=== PATIENT | female | born 2000 | race African-American/Black ===

== ENCOUNTER 2021-06-15 20:07 | Emergency (ER) | payer OTHER ==
[2021-06-15] MEDS ORDERED: Ondansetron PF 4 MG/2 ML Vial ONE (21:27)
[2021-06-15 21:52] LABS: BHCG - Serum Negative (NEGATIVE); Pregs Control Background? CLEAR/WHITE (CLR/WHITE); Pregs Control Bar Appear? YES (CONTROL BAR)
[2021-06-15 21:53] LABS: #Eosinphils 0.1 10x3/uL (0.0-0.5); #Monocytes 0.3 10x3/uL (0.0-1.1); #Neutrophils 2.5 10x3/uL (1.5-8.4); %Basophils 0.8 % (0.0-2.0); %Eosinophils 2.6 % (0.0-6.0); %Lymphocytes 41.6 % (18.0-47.0); %Monocytes 5.7 % (0.0-10.0); %Neutrophils 48.9 % (40.0-75.0); Mean Corpuscular HGB CONC 32.7 g/dL (32.0-36.0); Mean Corpuscular Volume 82.5 fl (81.6-98.3); Mean Platelet Volume 13.3 fl (7.4-10.4); Platelet Count 142 10x3/uL (150-450); RBC Distribution Width 13.8 % (11.5-14.5); Red Blood Cell (RBC) Count 4.81 10x6/uL (3.90-5.03); White Blood Cell (WBC) Count 5.1 10x3/uL (3.5-10.5)
[2021-06-15 21:59] LABS: ALT (SGPT) 13 U/L (8-55); AST (SGOT) 14 U/L (5-34); Albumin 4.6 g/dL (3.5-5.0); Alkaline Phosphatase 64 U/L (40-100); Anion Gap 15 mmol/L (10-20); BUN (Urea Nitrogen) 18 mg/dL (7.0-18.7); Bilirubin, Total 0.3 mg/dL (0.2-1.2); Calc. Creatinine Clearance 0 mL/min (70-130); Calcium 9.4 mg/dL (7.8-10.44); Carbon Dioxide 21 mmol/L (22-29); Chloride 105 mmol/L (98-107); Globulin 4.4 g/dL (2.4-3.5); Glucose 80 mg/dL (70-105); Lipase 29 U/L (8-78); Potassium 3.8 mmol/L (3.5-5.1); Sodium 137 mmol/L (136-145)
== END 2021-06-15 23:40 | disposition home or self-care (01) ==
LOC: CSHERS 20:07
DX: R11.10 Vomiting, unspecified (principal); J45.909 Unspecified asthma, uncomplicated
CPT/HCPCS: 74177; 80053; 83690; 84703; 85025; 96374; J2405

== ENCOUNTER 2022-01-10 17:28 | Emergency (ER) | payer OTHER ==
[2022-01-10 19:41] LABS: BHCG - Serum Negative (NEGATIVE); Pregs Control Background? CLEAR/WHITE (CLR/WHITE); Pregs Control Bar Appear? YES (CONTROL BAR)
[2022-01-10 19:45] LABS: #Eosinphils 0.2 10x3/uL (0.0-0.5); #Monocytes 0.3 10x3/uL (0.0-1.1); #Neutrophils 2.2 10x3/uL (1.5-8.4); %Basophils 0.9 % (0.0-2.0); %Eosinophils 3.8 % (0.0-6.0); %Lymphocytes 35.8 % (18.0-47.0); %Monocytes 7.5 % (0.0-10.0); %Neutrophils 51.3 % (40.0-75.0); ALT (SGPT) 19 U/L (8-55); AST (SGOT) 16 U/L (5-34); Alkaline Phosphatase 68 U/L (40-100); Anion Gap 12 mmol/L (10-20); BUN (Urea Nitrogen) 14 mg/dL (7.0-18.7); Bilirubin, Total 0.3 mg/dL (0.2-1.2); Calc. Creatinine Clearance 0 mL/min (70-130); Calcium 9.3 mg/dL (7.8-10.44); Carbon Dioxide 19 mmol/L (22-29); Chloride 110 mmol/L (98-107); Estimated GFR 121; Globulin 3.7 g/dL (2.4-3.5); Glucose 124 mg/dL (70-105); Hemoglobin 11.1 g/dL (12.0-15.5); Mean Corpuscular HGB CONC 32.1 g/dL (32.0-36.0); Mean Corpuscular Hemoglobin 25.2 pg (27.0-33.0); Mean Corpuscular Volume 78.5 fl (81.6-98.3); Mean Platelet Volume 13.1 fl (7.4-10.4); Platelet Count 144 10x3/uL (150-450); Potassium 3.9 mmol/L (3.5-5.1); Protein, Total 7.7 g/dL (6.0-8.3); RBC Distribution Width 15.5 % (11.5-14.5); Red Blood Cell (RBC) Count 4.41 10x6/uL (3.90-5.03); Sodium 137 mmol/L (136-145); White Blood Cell (WBC) Count 4.3 10x3/uL (3.5-10.5)
[2022-01-10 22:16] LABS: Bilirubin Neg (Negative); Blood, Urine Negative (Negative); Clarity Clear (Clear); Glucose, Urine (Dipstick) Normal (Negative); Ketone, Urine Negative (Negative); Leukocyte Negative (Negative); Nitrite Negative (Negative); Protein, Urine (Dipstick) Negative (Neg-Trace); Urobilinogen Normal mg/dL (Less than 2)
[2022-01-10 22:24] LABS: Amphetamine Not Detected (NotDetected); Barbiturates Screen Not Detected (NotDetected); Benzodiazepine Screen Not Detected (NotDetected); Cocaine Metabolite Screen Not Detected (NotDetected); Methadone Not Detected (NotDetected); Methamphetamine Not Detected (NotDetected); Opiate Screen Not Detected (NotDetected); Oxycodone Screen Not Detected (NotDetected); Phencyclidine (PCP) Not Detected (NotDetected); THC/Cannabinoid Screen Detected (NotDetected); Tricyclic Screen Not Detected (NotDetected)
== END 2022-01-10 22:47 | disposition home or self-care (01) ==
LOC: CSHERS 17:28
DX: R46.1 Bizarre personal appearance (principal)
CPT/HCPCS: 80053; 80306; 81003; 83605; 84146; 84703; 85025; 99284